=== PATIENT | female | born 1925 | race Two or more races ===

== ENCOUNTER 2016-04-05 13:59 | Emergency (ER) | payer MEDICARE, OTHER ==
[~2016-04-05] VITALS: Ht 162.6 cm; Wt 62.1 kg
[~2016-04-05 13:59] MED LIST: ACET325T53 PO; ALLA266C2 TP; Bisacodyl RC; DIVA250T4 PO; Docusate Sodium PO; ENOX30DI SQ; HYDR-3326 PO; LEVO50TA PO; MAGN400O6 PO; METO25TA20 PO; PARO10TA23 PO; Sennosides PO; Zolpidem Tartrate PO
[2016-04-05 14:52] LABS: BASOPHILS # (AUTO) 0.1 /CMM (0.0-0.2); DIFF TOTAL % 100 %; EOSINOPHILS # (AUTO) 0.1 /CMM (0.0-0.7); EOSINOPHILS % (AUTO) 1.8 % (0.0-6.0); HEMATOCRIT 37 % (33-45); HEMOGLOBIN 12.5 g/dL (11.5-14.8); LYMPHOCYTES # (AUTO) 1.9 /CMM (0.8-4.8); LYMPHOCYTES % (AUTO) 26.5 % (20.0-44.0); MEAN CORPUSCULAR HEMOGLOBIN 30 PG (26.0-33.0); MEAN CORPUSCULAR HGB CONC 34 g/dl (31.0-36.0); MEAN CORPUSCULAR VOLUME 90 fL (82-100); MONOCYTES # (AUTO) 0.7 /CMM (0.1-1.30); MONOCYTES % (AUTO) 9.2 % (2.0-12.0); NEUTROPHILS # (AUTO) 4.5 /CMM (1.8-8.9); NEUTROPHILS % (AUTO) 61.5 % (43.0-81.0); PLATELET COUNT (AUTO) 317 /CMM (150-450); RED BLOOD CELL COUNT(AUTO) 4.15 MIL/uL (4.0-5.2); WHITE BLOOD COUNT (AUTO) 7.3 K/uL (4.3-11.0)
[2016-04-05 15:00] LABS: CALCIUM, SERUM 7.6 mg/dL (8.5-10.1); POTASSIUM 4.2 mmol/L (3.5-5.1)
[2016-04-05 16:58] VITALS: BP 108/61
== END 2016-04-05 17:13 | disposition home or self-care (01) ==
LOC: ER 14:01
DX: S00.03XA Contusion of scalp, initial encounter (principal); E87.6 Hypokalemia; R79.89 Other specified abnormal findings of blood chemistry; I10 Essential (primary) hypertension; W19.XXXA Unspecified fall, initial encounter; Y93.89 Activity, other specified; Y92.89 Other specified places as the place of occurrence of the external cause; Y99.8 Other external cause status
CPT/HCPCS: 36415; 70450-TC; 71010-TC; 80048-TC; 85025-TC; A4606; Z7610

== ENCOUNTER 2016-12-07 12:14 | Inpatient (IN) | payer MEDICARE, OTHER ==
[~2016-12-07] VITALS: Ht 162.6 cm; Wt 61.2 kg
[~2016-12-07 12:14] MED LIST changes: -PARO10TA23 PO; +PARO10TA26 PO
--- NOTE | 2016-12-07 12:20 | NUR ---
BIB EMS [facility] C/O SYNCOPAL EPISODE 2 HRS GASTROENTEROLOGY TECHNICIAN. BREATHING EVEN AND UNLABORED. NO SOB. VITALS STABLE. SAFETY AND COMFORT MEASURES IN PLACE. AWAITING MD ORDERS.
--- NOTE | 2016-12-07 12:42 | NUR ---
NEW IV STARTED ON RIGHT WRIST, 20 G.
[2016-12-07 12:47] LABS: BASOPHILS # (AUTO) 0.1 /CMM (0.0-0.2); BASOPHILS % (AUTO) 1.3 % (0.0-2.0); EOSINOPHILS # (AUTO) 0.1 /CMM (0.0-0.7); EOSINOPHILS % (AUTO) 0.8 % (0.0-6.0); HEMATOCRIT 42 % (33-45); HEMOGLOBIN 14.4 g/dL (11.5-14.8); LYMPHOCYTES # (AUTO) 2.6 /CMM (0.8-4.8); LYMPHOCYTES % (AUTO) 24.4 % (20.0-44.0); MEAN CORPUSCULAR HEMOGLOBIN 32 PG (26.0-33.0); MEAN CORPUSCULAR HGB CONC 34 g/dl (31.0-36.0); MEAN CORPUSCULAR VOLUME 92 fL (82-100); MONOCYTES # (AUTO) 0.9 /CMM (0.1-1.30); MONOCYTES % (AUTO) 8.6 % (2.0-12.0); NEUTROPHILS # (AUTO) 6.9 /CMM (1.8-8.9); NEUTROPHILS % (AUTO) 64.9 % (43.0-81.0); RDW COEFFICIENT OF VARIATION 12.6 (11.5-15.0); RED BLOOD CELL COUNT(AUTO) 4.58 MIL/uL (4.0-5.2); WHITE BLOOD COUNT (AUTO) 10.6 K/uL (4.3-11.0)
[2016-12-07 12:51] LABS: PLATELET COUNT (AUTO) 160 /CMM (150-450)
--- NOTE | 2016-12-07 12:53 | NUR ---
REAL ESTATE INSTRUCTOR AT BEDSIDE.
[2016-12-07 13:00] LABS: CALCIUM, SERUM 8.6 mg/dL (8.5-10.1); CARBON DIOXIDE 24 mmol/L (21-32); CHLORIDE 100 mmol/L (98-107); GLUCOSE 102 mg/dL (74-106); POTASSIUM 4.3 mmol/L (3.5-5.1); SODIUM SERUM 131 mmol/L (136-145); UREA NITROGEN, BLOOD 16 mg/dL (7-18)
[2016-12-07 13:03] LABS: INR 1.05 (0.87-1.13); PROTHROMBIN TIME 10.9 SECS (9.5-12.7)
[2016-12-07 13:10] LABS: ALANINE AMINOTRANSFERASE 10 U/L (12-78); ALBUMIN 3.1 g/dL (3.4-5.0); ALKALINE PHOSPHATASE 137 U/L (46-116); ASPARTATE AMINOTRANSFERASE 27 U/L (15-37); BILIRUBIN,DIRECT 0.1 mg/dL (0.0-0.2); BILIRUBIN,TOTAL 0.4 mg/dL (0.2-1.0); TOTAL PROTEIN, SERUM 8.2 g/dL (6.4-8.2)
[2016-12-07 13:11] LABS: TROPONIN I 0.003 ng/mL (0.00-0.056)
[2016-12-07] MEDS ORDERED: METO25TA6 PO (13:17)
[2016-12-07] MEDS ORDERED: CALC-883 PO (13:17)
[2016-12-07] MEDS ORDERED: MULT-213 PO (13:17)
[2016-12-07] MEDS ORDERED: CRAN425C PO (13:17)
[2016-12-07] MEDS ORDERED: LEVO50TA8 PO (13:17)
[2016-12-07] MEDS ORDERED: DOCU250C75 PO (13:17)
[2016-12-07] MEDS ORDERED: IBUP-1481 PO (13:17)
[2016-12-07] MEDS ORDERED: MELA3TAB PO (13:17)
[2016-12-07] MEDS ORDERED: ACET-868 PO (13:17)
[2016-12-07] MEDS ORDERED: PARO10TA26 PO (13:17)
--- NOTE | 2016-12-07 13:34 | NUR ---
314-1 TELE NURSE ANA M
[2016-12-07] MEDS ORDERED: ENALAPRILAT DIHYD. (2.5MG/ML) 1.25 MG/ML VIAL IV ONE (13:35)
--- NOTE | 2016-12-07 13:35 | NUR ---
CALLED [facility], RATE REVIEWER WAS PAGED.
[2016-12-07] MEDS ORDERED: ENALAPRILAT INJ (1.25 MG/ML) 1.25 MG/ML VIAL IV PRN (14:00)
--- NOTE | 2016-12-07 14:40 | NUR ---
CALLED [facility], TELEPHONE INTERCEPTOR OPERATOR WAS PAGED.
--- NOTE | 2016-12-07 15:10 | NUR ---
EDUCATION ANALYST OPENING RECEIVED PATIENT FROM ER BROUGHT IN FROM [facility] WITH FAMILY AT SIDE. PATIENT M[place] SPEAKING ONLY, A/OX1 HX DEMENTIA THIS IS PATIENT BASELINE. PATIENT APPEARS STABLE. ORTHOSTATIC BP TAKEN AND TELE APPLIED PATIENT NSR 75 AT THIS TIME. NO S/S DISTRESS NO SOB, DIFFICULTY BREATHING OR PAIN AT THIS TIME. ALL NEEDS IN REACH, BED LOWERED AND LOCKED, RAILS UPX3 FOR SAFETY AND WILL ROUND Q2H OR LESS PER NEEDS. MD GOODMAN PAGED FOR ADMISSION.
--- NOTE | 2016-12-07 15:10 | NUR ---
PATIENT TRANSPORTED TO [facility] VIA ACLS PROTOCOL. RNANA M TO PROVIDE SAIMA.
[2016-12-07 15:15] VITALS: BP 159/93
[2016-12-07 15:17] VITALS: BP 144/86
[2016-12-07 15:20] VITALS: BP 111/75
[2016-12-07 16:00] VITALS: BP 159/93
--- NOTE | 2016-12-07 16:00 | NUR ---
SEWING INSPECTOR NOTES TELEPHONE ORDER DR REX MURPHY. ADMIT TO TELE DX SYNCOPE. AM CBC, BMP AND TROPONINS, MED RECON COMPLETED PER MD AND FAXED TO PHARMACY. ORDER 2G NA DIET, EKG IN AM, REPEAT ORTHO STATIC IN AM, NITRO PASTE 1/2 IN Q6H PRN FOR SBP OVER 180, SCD PUMPS
[2016-12-07] MEDS ORDERED: NITROGLYCERIN PACKET 1 GM PACKET TOP PRN (16:30)
[2016-12-07] MEDS ORDERED: ACETAMINOPHEN 325 MG TABLET PO PRN (17:30)
[2016-12-07] MEDS ORDERED: IBUPROFEN 400 MG TABLET PO PRN (17:30)
--- NOTE | 2016-12-07 18:29 | NUR ---
VICE PRESIDENT RESIDENTIAL SOLAR SALESADVERTISING TRAFFIC MANAGER PATIENT STABLE NO COMPLICATIONS NO CHANGES THROUGHOUT SHIFT. ALL NEEDS IN REACH, BED LOWERED AND LOCKED, RAILS UXP3 FOR SAFETY AND WILL ENDORSE TO RN FOR SAIMA
[2016-12-07] MEDS: IV D5/ 0.9% NACL 1,000 ML IV PRN (18:50)
[2016-12-07 20:00] VITALS: BP 153/79
--- NOTE | 2016-12-07 20:00 | NUR ---
RN NOTES RECEIVED PATIENT IN BED, ALERT AND ORIENTED X1, ORIENTED TO TIME, PLACE AND SITUATION. WITH EPISODES OF CONFUSION, HX OF DEMENTIAL. NO SOB, NO RESPIRATORY DISTRESS, TOLERATING ROOM AIR, SPO2 96%, DENIES ANY PAIN AT THIS TIME, ABLE TO VERBALIZE NEEDS IN YI. REPOSITIONED FOR COMFORT, CALL LIGHT WITHIN REACHC.
[2016-12-07] MEDS: METOPROLOL TARTRATE 25 MG TABLET PO SCH (20:43)
--- NOTE | 2016-12-07 21:32 | NUR ---
RN NOTES NOTED RIGHT WRIST PERIPHERAL LINE IS INFILTRATED, STOPPED IV INFUSION. WILL CHANGE IV SITE.
[2016-12-07] MEDS ORDERED: Medication Not On Formulary EA (Melatonin 3 MG) PO SCH (22:00)
[2016-12-08] VITALS (10 sets, daily range): BP systolic 103–185; BP diastolic 38–84
--- NOTE | 2016-12-08 00:30 | NUR ---
RN NOTES RE-INSERTED PERIPHERAL LINE TO LEFT FOREARM #22, GOOD BACKFLOW, PROCEDURE TOLERATED WELL. DISCONTINUED RIGHT HAND PERIPHERAL LINE SECONDARY TO INFILTRATION AND PAINFUL.
--- NOTE | 2016-12-08 00:57 | NUR ---
RN NOTES GIVEN RADHA COMPLAINING OF HEADACHE. MADE COMFORTABLE, WILL CONTINUE TO MONITOR
--- NOTE | 2016-12-08 06:52 | NUR ---
RN NOTES PATIENT IN BED, ALERT AND AWAKE, NO DISTRESS, NO SOB, COMPLIANT WITH MEDICATION AND DIAPER CHANGE, SLEPT FOR 5 HOURS INTERMITTENTLY, NO BEHAVIOR DISTURBANCE AFTER ONE EPISODE OF COMBATIVENESS DURING IV INSERTION. ALL DUE MEDICATIONS GIVEN, CALL LIGHT WITHIN REACH.
--- NOTE | 2016-12-08 07:30 | NUR ---
PT RECEIVED RESTING COMFORTABLY IN BED WITH EYES CLOSED. NO S/S OR C/O PAIN OR DISTRESS NOTED. SIDE RAILS UP X2, CALL LIGHT LEFT WITHIN REACH. WILL CONTINUE PLAN OF CARE.
[2016-12-08 07:41] LABS: BASOPHILS # (AUTO) 0.1 /CMM (0.0-0.2); BASOPHILS % (AUTO) 0.9 % (0.0-2.0); EOSINOPHILS # (AUTO) 0.2 /CMM (0.0-0.7); EOSINOPHILS % (AUTO) 2.5 % (0.0-6.0); HEMATOCRIT 36 % (33-45); HEMOGLOBIN 12.1 g/dL (11.5-14.8); LYMPHOCYTES # (AUTO) 2.7 /CMM (0.8-4.8); LYMPHOCYTES % (AUTO) 39.8 % (20.0-44.0); MEAN CORPUSCULAR HEMOGLOBIN 31 PG (26.0-33.0); MEAN CORPUSCULAR HGB CONC 34 g/dl (31.0-36.0); MEAN CORPUSCULAR VOLUME 94 fL (82-100); MONOCYTES # (AUTO) 0.9 /CMM (0.1-1.30); MONOCYTES % (AUTO) 13.7 % (2.0-12.0); NEUTROPHILS # (AUTO) 2.9 /CMM (1.8-8.9); NEUTROPHILS % (AUTO) 43.1 % (43.0-81.0); PLATELET COUNT (AUTO) 250 /CMM (150-450); RDW COEFFICIENT OF VARIATION 13.6 (11.5-15.0); RED BLOOD CELL COUNT(AUTO) 3.87 MIL/uL (4.0-5.2); WHITE BLOOD COUNT (AUTO) 6.7 K/uL (4.3-11.0)
[2016-12-08 07:51] LABS: CALCIUM, SERUM 7.9 mg/dL (8.5-10.1); CARBON DIOXIDE 24 mmol/L (21-32); CHLORIDE 103 mmol/L (98-107); CREATININE 0.9 mg/dL (0.6-1.3); GLUCOSE 98 mg/dL (74-106); POTASSIUM 4.2 mmol/L (3.5-5.1); SODIUM SERUM 135 mmol/L (136-145); UREA NITROGEN, BLOOD 15 mg/dL (7-18)
[2016-12-08 07:55] LABS: TROPONIN I < 0.017 ng/mL (0.00-0.056)
[2016-12-08] MEDS: LEVOTHYROXINE SODIUM 50 MCG TABLET PO SCH (08:56)
[2016-12-08] MEDS: CALCIUM CARB 250MG /VITAMIN D 1 UDTAB PO SCH (08:57)
[2016-12-08] MEDS: METOPROLOL TARTRATE 25 MG TABLET PO SCH ×2 (08:57→20:34)
[2016-12-08] MEDS: PAROXETINE HCL 10 MG TABLET PO SCH (08:57)
[2016-12-08] MEDS: DOCUSATE SODIUM 250 MG CAPSULE PO SCH ×2 (08:57→17:08)
[2016-12-08] MEDS: MULTIVIT, IRON, MIN NO. 8, FA 1 TAB PO SCH (08:59)
[2016-12-08] MEDS ORDERED: Medication Not On Formulary EA (Cranberry Extract (Cranberry) 425 MG) PO SCH (09:00)
[2016-12-08 11:01] LABS: THYROID STIMULATING HORMONE 2.052 uIU/mL (0.358-3.74)
--- NOTE | 2016-12-08 18:17 | NUR ---
CHANGE OF SHIFT REPORT PT RESTING COMFORTABLY IN BED. NO S/S OR C/O PAIN OR DISTRESS NOTED. SIDE RAILS UP X2, CALL LIGHT LEFT WITHIN REACH. PT KEPT CLEAN, DRY, AND COMFORTABLE. NO SIGNIFICANT CHANGES SINCE PREVIOUS SHIFT. WILL GIVE REPORT TO LIDA ZENDEJAS.
--- NOTE | 2016-12-08 20:00 | NUR ---
RN NOTES RECEIVED PATIENT IN BED, ALERT, ORIENTED TO SELF ONLY, HUNGARIAN SPEAKING ONLY, CALM, PLEASANT. NO SOB, DENIES ANY PAIN AT THIS TIME. LEFT FA PERIPHERAL LINE IS PATENT AND INFUSING WELL. REPOSITIONED FOR COMFORT, CALL LIGHT WITHIN REACH.
[2016-12-09] VITALS: BP_SYST 152; BP_SYST 165; BP_DIAS 63; BP_DIAS 74
[2016-12-09 04:00] VITALS: BP_SYST 160; BP_SYST 169; BP_DIAS 78; BP_DIAS 81
[2016-12-09] MEDS: IV D5/ 0.9% NACL 1,000 ML IV PRN (05:22)
--- NOTE | 2016-12-09 05:47 | NUR ---
Slept through the night. Alert but forgetful, DX dementia. Made no attempt to get OOB. Incontinent, but cooperative about being repositioned and changed. No noted dizziness or change in visiion
[2016-12-09 07:13] LABS: BASOPHILS # (AUTO) 0.1 /CMM (0.0-0.2); BASOPHILS % (AUTO) 0.8 % (0.0-2.0); EOSINOPHILS # (AUTO) 0.2 /CMM (0.0-0.7); EOSINOPHILS % (AUTO) 2.9 % (0.0-6.0); HEMATOCRIT 39 % (33-45); HEMOGLOBIN 13.3 g/dL (11.5-14.8); LYMPHOCYTES # (AUTO) 2.5 /CMM (0.8-4.8); LYMPHOCYTES % (AUTO) 29.5 % (20.0-44.0); MEAN CORPUSCULAR HEMOGLOBIN 32 PG (26.0-33.0); MEAN CORPUSCULAR HGB CONC 34 g/dl (31.0-36.0); MEAN CORPUSCULAR VOLUME 93 fL (82-100); MONOCYTES # (AUTO) 0.9 /CMM (0.1-1.30); MONOCYTES % (AUTO) 10.6 % (2.0-12.0); NEUTROPHILS # (AUTO) 4.7 /CMM (1.8-8.9); NEUTROPHILS % (AUTO) 56.2 % (43.0-81.0); PLATELET COUNT (AUTO) 241 /CMM (150-450); RDW COEFFICIENT OF VARIATION 13.4 (11.5-15.0); RED BLOOD CELL COUNT(AUTO) 4.22 MIL/uL (4.0-5.2); WHITE BLOOD COUNT (AUTO) 8.3 K/uL (4.3-11.0)
[2016-12-09 07:32] LABS: TROPONIN I < 0.017 ng/mL (0.00-0.056)
[2016-12-09 07:38] LABS: ALANINE AMINOTRANSFERASE 425 U/L (12-78); ALBUMIN 2.5 g/dL (3.4-5.0); ASPARTATE AMINOTRANSFERASE 27 U/L (15-37); CALCIUM, SERUM 8.1 mg/dL (8.5-10.1); CARBON DIOXIDE 26 mmol/L (21-32); CHLORIDE 108 mmol/L (98-107); CREATININE 0.8 mg/dL (0.6-1.3); GLUCOSE 101 mg/dL (74-106); MAGNESIUM 1.9 mg/dL (1.8-2.4); POTASSIUM 4.6 mmol/L (3.5-5.1); SODIUM SERUM 140 mmol/L (136-145); UREA NITROGEN, BLOOD 9 mg/dL (7-18)
[2016-12-09 07:56] LABS: ALKALINE PHOSPHATASE 106 U/L (46-116); BILIRUBIN,TOTAL 0.6 mg/dL (0.2-1.0); PHOSPHORUS 3.5 mg/dL (2.5-4.9); TOTAL PROTEIN, SERUM 6.9 g/dL (6.4-8.2)
[2016-12-09 08:00] VITALS: BP 166/96
--- NOTE | 2016-12-09 08:02 | NUR ---
MS/RN OPENING NOTE PATIENT RECEIVED IN BED IN STABLE CONDITION. ALERT AND ORIENTED TIMES 1. NIUEAN SPEAKING. NO SIGNS OF ACUTE DISTRESS. NO COMPLAIN OF PAIN OR DISCOMFORT. ALL NEEDS ATTENDED TO. CALL LIGHT WITHIN REACH. WILL CONTINUE TO MONITOR TO ENSURE SAFETY.
--- NOTE | 2016-12-09 08:08 | NUR ---
MS/RN SEEN BY DR RODRIGUEZ PATIENT SEEN BY DR RODRIGUEZ WITH ORDER TO CHECK ORTHOSTATIC BLOOD PRESSURE. PATIENT REFUSED ORTHOSTATIC BLOOD PRESSURE. OFFERED TIMES 3 WITH RISK AND BENEFITS EXPLAINED IN [place]. STILL CONTINUE TO REFUSE. DR RODRIGUEZ AT BEDSIDE AWARE.
[2016-12-09] MEDS: MULTIVIT, IRON, MIN NO. 8, FA 1 TAB PO SCH (08:42)
[2016-12-09] MEDS: DOCUSATE SODIUM 250 MG CAPSULE PO SCH ×2 (08:42→16:43)
[2016-12-09] MEDS: PAROXETINE HCL 10 MG TABLET PO SCH (08:42)
[2016-12-09] MEDS: LEVOTHYROXINE SODIUM 50 MCG TABLET PO SCH (08:43)
[2016-12-09] MEDS: METOPROLOL TARTRATE 25 MG TABLET PO SCH ×2 (08:43→20:22)
[2016-12-09] MEDS: CALCIUM CARB 250MG /VITAMIN D 1 UDTAB PO SCH (08:43)
[2016-12-09] MEDS ORDERED: VALSARTAN 80 MG TABLET PO SCH (09:00)
--- NOTE | 2016-12-09 11:00 | NUR ---
MS/RN SEEN BY DR GOODMAN PATIENT SEEN BY DR GOODMAN WITH NO NEW ORDERS
[2016-12-09 16:00] VITALS: BP 170/77
[2016-12-09] MEDS: DOXAZOSIN MESYLATE (1 MG) 1 MG TABLET PO SCH (16:42)
--- NOTE | 2016-12-09 18:52 | NUR ---
MS/RN CLOSING NOTE PATIENT IN BED AWAKE IN STABLE CONDITION. ALERT AND ORIENTED TIMES 1 TO 2. PORTUGUESE SPEAKING. NO SIGNS OF ACUTE DISTRESS. NO COMPLAIN OF PAIN OR DISCOMFORT. ALL NEEDS ATTENDED TO. CALL LIGHT WITHIN REACH. WILL ENDORSE TO NEXT SHIFT FOR CONTINUITY FOR CARE.
--- NOTE | 2016-12-09 19:35 | NUR ---
MS RN NOTE RECEIVED PATIENT FROM DAY SHIFT PATIENT IS ALERT AND ORIENTEDX1, CONFUSED AT TIMES, COOPERATIVE. NO S/S OF RESPIRATORY DISTRESS OR PAIN AT THIS TIME. IV ON LEFT FA IS PATENT AND INTACT, HL ONLY. SRX2 BED IN LOW POSITION, CALL LIGHT WITHIN REACH, WILL CONTINUE TO MONITOR PATIENT.
[2016-12-09 20:00] VITALS: BP 116/57
[2016-12-09] MEDS ORDERED: DOXAZOSIN MESYLATE (1 MG) 1 MG TABLET PO SCH (22:00)
--- NOTE | 2016-12-10 06:47 | NUR ---
MS RN NOTE NO ACUTE DISTRESS PRESENT THROUGHOUT THE SHIFT. WILL ENDORSE TO DAY SHIFT NURSE FOR SAIMA.
[2016-12-10 08:00] VITALS: BP 152/70
--- NOTE | 2016-12-10 08:01 | NUR ---
MS/RN OPENING NOTE PATIENT RECEIVED IN BED IN STABLE CONDITION. ALERT AND ORIENTED TIMES 2. TOGOLESE SPEAKING. NO SIGNS OF ACUTE DISTRESS. NO COMPLAIN OF PAIN OR DISCOMFORT. ALL NEEDS ATTENDED TO. CALL LIGHT WITHIN REACH. WILL CONTINUE TO MONITOR TO ENSURE SAFETY.
[2016-12-10] MEDS: MULTIVIT, IRON, MIN NO. 8, FA 1 TAB PO SCH (08:59)
[2016-12-10] MEDS: DOXAZOSIN MESYLATE (1 MG) 1 MG TABLET PO SCH (08:59)
[2016-12-10] MEDS: CALCIUM CARB 250MG /VITAMIN D 1 UDTAB PO SCH (08:59)
[2016-12-10 09:00] VITALS: BP 152/70
[2016-12-10] MEDS: METOPROLOL TARTRATE 25 MG TABLET PO SCH (09:00)
[2016-12-10] MEDS: PAROXETINE HCL 10 MG TABLET PO SCH (09:00)
[2016-12-10] MEDS: DOCUSATE SODIUM 250 MG CAPSULE PO SCH (09:00)
[2016-12-10] MEDS ORDERED: VALSARTAN 80 MG TABLET PO SCH (09:00)
[2016-12-10] MEDS: LEVOTHYROXINE SODIUM 50 MCG TABLET PO SCH (09:00)
--- NOTE | 2016-12-10 10:30 | NUR ---
MS/RN SEEN BY DR GOODMAN PATIENT SEEN BY DR GOODMAN WITH ORDERS TO DISCHARGE PATIENT TO [facility].
--- NOTE | 2016-12-10 14:00 | NUR ---
MS/DIRECTOR DERMATOLOGY PATIENT DISCHARGE TO [facility]. ALERT AND ORIENTED TIMES 1. [place] SPEAKING AND UNDERSTANDING. NO SIGNS OF ACUTE DISTRESS. NO COMPLAIN OF PAIN OR DISCOMFORT. DISCHARGE INSTRUCTIONS PROVIDED TO PATIENT IN [place] BUT UNABLE TO COMPREHEND. REPORT GIVEN TO DANIA ZENDEJAS FROM [facility]. NAME BAND AND IV SITE REMOVED. ALL NEEDS ATTENDED TO. LEFT VIA AMBULANCE ACCOMPANIED BY 2 EMT'S IN STABLE CONDITION.
== END 2016-12-10 14:05 | DRG 74 ==
LOC: ER 12:15 → TELE 14:42 → MED 12-09 09:39
PROVIDERS: ADMIT Internal Medicine Nephrology; ATTEND Internal Medicine Nephrology
DX: G90.8 Other disorders of autonomic nervous system (principal); E44.1 Mild protein-calorie malnutrition; F03.90 Unspecified dementia, unspecified severity, without behavioral disturbance, psychotic disturbance, mood disturbance, and anxiety; I11.9 Hypertensive heart disease without heart failure; E87.1 Hypo-osmolality and hyponatremia; I16.0 Hypertensive urgency; E03.9 Hypothyroidism, unspecified; Z66 Do not resuscitate; Z88.8 Allergy status to other drugs, medicaments and biological substances; Z79.899 Other long term (current) drug therapy; Z96.652 Presence of left artificial knee joint; I70.0 Atherosclerosis of aorta; Z87.81 Personal history of (healed) traumatic fracture
CPT/HCPCS: 36415; 71010-TC; 80048-TC; 80053-TC; 80076-TC; 82728-TC; 82962-TC; 83540-TC; 83735-TC; 84100-TC; 84439-TC; 84443-TC; 84484-TC; 85025-TC; 85730-TC; 87081-TC; 93307-TC; 97116-TC; 97530-TC; A4606; J3490; J7042; Z7610

== ENCOUNTER 2016-12-13 15:39 | Inpatient (IN) | payer MEDICARE, OTHER ==
[~2016-12-13] VITALS: Ht 152.4 cm; Wt 67.1 kg
[~2016-12-13 15:39] MED LIST changes: +ACET-868 PO; -ACET325T53 PO; -ALLA266C2 TP; -Bisacodyl RC; +CALC-883 PO; +CRAN425C PO; -DIVA250T4 PO; +DOCU250C75 PO; -Docusate Sodium PO; -ENOX30DI SQ; -HYDR-3326 PO; +IBUP-1481 PO; -LEVO50TA PO; +LEVO50TA8 PO; -MAGN400O6 PO; +MELA3TAB PO; -METO25TA20 PO; +METO25TA6 PO; +MULT-213 PO; -Sennosides PO; -Zolpidem Tartrate PO
--- NOTE | 2016-12-13 15:50 | NUR ---
BIB [facility] C/O SYNCOPAL EPISODE WHILE ON WHEELCHAIR. PT AWAKE, ALERT AND ORIENTED. MD AT BS FOR EVAL. IV ACCESS STARTED. SAFETY AND COMFORT MEASURES PROVIDED. WILL MONITOR.
--- NOTE | 2016-12-13 16:03 | NUR ---
PT TAKEN TO CT SCAN.
[2016-12-13 16:09] LABS: BASOPHILS # (AUTO) 0.1 /CMM (0.0-0.2); BASOPHILS % (AUTO) 0.9 % (0.0-2.0); EOSINOPHILS # (AUTO) 0.1 /CMM (0.0-0.7); HEMATOCRIT 37 % (33-45); HEMOGLOBIN 12.2 g/dL (11.5-14.8); LYMPHOCYTES # (AUTO) 2.5 /CMM (0.8-4.8); LYMPHOCYTES % (AUTO) 35.1 % (20.0-44.0); MEAN CORPUSCULAR HEMOGLOBIN 31 PG (26.0-33.0); MEAN CORPUSCULAR HGB CONC 33 g/dl (31.0-36.0); MEAN CORPUSCULAR VOLUME 94 fL (82-100); MONOCYTES # (AUTO) 0.7 /CMM (0.1-1.30); MONOCYTES % (AUTO) 9.3 % (2.0-12.0); NEUTROPHILS # (AUTO) 3.7 /CMM (1.8-8.9); NEUTROPHILS % (AUTO) 52.7 % (43.0-81.0); PLATELET COUNT (AUTO) 267 /CMM (150-450); RDW COEFFICIENT OF VARIATION 13.9 (11.5-15.0); RED BLOOD CELL COUNT(AUTO) 3.95 MIL/uL (4.0-5.2)
--- NOTE | 2016-12-13 16:30 | NUR ---
URINE SAMPLE OBTAINED, SENT.
[2016-12-13 16:32] LABS: CALCIUM, SERUM 8.4 mg/dL (8.5-10.1); CARBON DIOXIDE 26 mmol/L (21-32); CHLORIDE 103 mmol/L (98-107); CREATININE 1.1 mg/dL (0.6-1.3); GLUCOSE 85 mg/dL (74-106); POTASSIUM 4.5 mmol/L (3.5-5.1); SODIUM SERUM 136 mmol/L (136-145); UREA NITROGEN, BLOOD 18 mg/dL (7-18)
[2016-12-13 16:42] LABS: TROPONIN I < 0.017 ng/mL (0.00-0.056)
[2016-12-13 17:20] LABS: APPEARANCE,URINE SL CLOUDY (CLEAR); BILIRUBIN,URINE NEGATIVE (NEGATIVE); BLOOD, URINE TRACE-INTA Ery/uL (NEGATIVE); COLOR,URINE YELLOW (YELLOW); KETONES,URINE NEGATIVE (NEGATIVE); LEUKOCYTE ESTERASE ,URINE 3+ (NEGATIVE); NITRITE, URINE POSITIVE (NEGATIVE); PROTEIN,URINE NEGATIVE (NEGATIVE); UGLUCOSE NEGATIVE (NEGATIVE); UROBILINOGEN,URINE 0.2 EU/dL (0.2)
[2016-12-13] MEDS ORDERED: DOXA2TAB PO (17:21)
[2016-12-13] MEDS ORDERED: AMIN30LI27 PO (17:21)
[2016-12-13] MEDS ORDERED: VALS160T2 PO (17:21)
[2016-12-13 17:32] LABS: BACTERIA,URINE 4+ /HPF (None Seen); SQUAMOUS EPITHELIAL CELL,UR 0-2 /HPF (None Seen); WBC,URINE 21-50 /HPF (0-3)
[2016-12-13] MEDS ORDERED: CEFTRIAXONE 1GM BAG (ER ONLY) 50 ML IV ONE (17:42)
--- NOTE | 2016-12-13 17:52 | NUR ---
PAGED DR. JOSEPH FOR ADMISSION
[2016-12-13] MEDS ORDERED: AZITHROMYCIN 500 MG in IV D5W 250 ML IV ONE (18:00)
[2016-12-13] MEDS ORDERED: CEFTRIAXONE 1 G in IV D5W 50 ML IV ONE (18:00)
--- NOTE | 2016-12-13 18:14 | NUR ---
[address]ND [address] TO DR. JOSEPH FOR ADMISSION
--- NOTE | 2016-12-13 18:52 | NUR ---
REPORT GIVEN TO GET ZENDEJAS FOR TELE [id number].
[2016-12-13 20:00] VITALS: BP 119/62
[2016-12-14] VITALS: BP 140/64
[2016-12-14 04:00] VITALS: BP 118/61
--- NOTE | 2016-12-14 06:48 | NUR ---
RN NOTE RECEIVED PT IN NO ACUTE DISTRESS IN BED. PT IS A/O X 2 AND ABLE TO MAKE NEEDS KNOWN. PT IS ON 2L O2 VIA NC AND TOLERATING WELL @ 98%. PT IS ON TELE WITH SR ON THE MONITOR. PT DID NOT HAVE ANY SIGNIFICANT CHANGE IN CONDITION DURING SHIFT. ALL NEEDS MET, ALL ORDERS CARRIED OUT. WILL ENDORSE CARE TO AM RN FOR CONTINUITY OF CARE.
--- NOTE | 2016-12-14 07:46 | NUR ---
RN NOTES RECEIVED PT FROM MUSIC COMPOSITION TEACHER IN STABLE CONDITION, A&OX3, MINIMAL WELSH MOSTLY SOMALI SPEAKING. ON 2L NS, NO SOB OR DISTRESS NOTED. SR ON THE TELE MONITOR HR IN THE 80S. R FA 20 GAUGE IV SITE DRY AND INTACT. BED LOCKED AND IN LOWEST POSITION, CALL LIGHT WITHIN REACH, SIDE RAILS UPX3, WILL CONT TO MONITOR.
[2016-12-14 08:00] VITALS: BP 117/69
[2016-12-14] MEDS ORDERED: Medication Not On Formulary EA (Cranberry Extract (Cranberry) 425 MG) PO SCH (09:30)
[2016-12-14] MEDS ORDERED: ACETAMINOPHEN 325 MG TABLET PO PRN (09:30)
[2016-12-14] MEDS ORDERED: IBUPROFEN 400 MG TABLET PO PRN (09:30)
[2016-12-14 10:11] LABS: BASOPHILS # (AUTO) 0.1 /CMM (0.0-0.2); BASOPHILS % (AUTO) 1.5 % (0.0-2.0); EOSINOPHILS # (AUTO) 0.1 /CMM (0.0-0.7); EOSINOPHILS % (AUTO) 2.4 % (0.0-6.0); HEMATOCRIT 36 % (33-45); LYMPHOCYTES # (AUTO) 2.1 /CMM (0.8-4.8); LYMPHOCYTES % (AUTO) 36.7 % (20.0-44.0); MEAN CORPUSCULAR HEMOGLOBIN 31 PG (26.0-33.0); MEAN CORPUSCULAR HGB CONC 33 g/dl (31.0-36.0); MEAN CORPUSCULAR VOLUME 93 fL (82-100); MONOCYTES # (AUTO) 0.6 /CMM (0.1-1.30); MONOCYTES % (AUTO) 10.3 % (2.0-12.0); NEUTROPHILS # (AUTO) 2.8 /CMM (1.8-8.9); NEUTROPHILS % (AUTO) 49.1 % (43.0-81.0); PLATELET COUNT (AUTO) 263 /CMM (150-450); RDW COEFFICIENT OF VARIATION 13.2 (11.5-15.0); RED BLOOD CELL COUNT(AUTO) 3.86 MIL/uL (4.0-5.2); WHITE BLOOD COUNT (AUTO) 5.7 K/uL (4.3-11.0)
[2016-12-14] MEDS: PROSOURCE / PROSTAT (PYXIS) 30 ML UDC PO SCH ×2 (10:16→17:11)
[2016-12-14] MEDS: DOXAZOSIN MESYLATE (1 MG) 1 MG TABLET PO SCH ×2 (10:16→17:10)
[2016-12-14] MEDS: LEVOTHYROXINE SODIUM 50 MCG TABLET PO SCH (10:16)
[2016-12-14] MEDS: CALCIUM CARB 600MG /VIT D 1 EACH TABLET PO SCH (10:17)
[2016-12-14] MEDS: PAROXETINE HCL 10 MG TABLET PO SCH (10:17)
[2016-12-14] MEDS: MULTIVIT, IRON, MIN NO. 8, FA 1 TAB PO SCH (10:17)
[2016-12-14 10:20] LABS: CALCIUM, SERUM 8.2 mg/dL (8.5-10.1); CARBON DIOXIDE 27 mmol/L (21-32); CHLORIDE 107 mmol/L (98-107); CREATININE 0.8 mg/dL (0.6-1.3); GLUCOSE 102 mg/dL (74-106); POTASSIUM 3.9 mmol/L (3.5-5.1); SODIUM SERUM 140 mmol/L (136-145); UREA NITROGEN, BLOOD 13 mg/dL (7-18)
[2016-12-14 10:25] LABS: ALANINE AMINOTRANSFERASE 13 U/L (12-78); ALBUMIN 2.5 g/dL (3.4-5.0); ALKALINE PHOSPHATASE 100 U/L (46-116); ASPARTATE AMINOTRANSFERASE 19 U/L (15-37); BILIRUBIN,TOTAL 0.3 mg/dL (0.2-1.0); MAGNESIUM 2.1 mg/dL (1.8-2.4); PHOSPHORUS 3.1 mg/dL (2.5-4.9); TOTAL PROTEIN, SERUM 6.8 g/dL (6.4-8.2)
[2016-12-14] MEDS: IV NS 0.9% 1,000 ML IV PRN (11:11)
--- NOTE | 2016-12-14 11:36 | NUR ---
RN NOTES DR RODRIGUEZ ORDERED ORTHOSTATIC BLOOD PRESSURE, ATTEMPTED TO DO WITH ALUMINUM WELDER, PT IS UNABLE TO STAND. PER PT SHE NEVER WALKS AT HER PRISON, ONLY USES A WHEELCHAIR. VITALS WERE DONE LAYING DOWN AND SITTING UP IN BED.
[2016-12-14 12:00] VITALS: BP_SYST 137; BP_SYST 147; BP_DIAS 61; BP_DIAS 82
[2016-12-14 16:00] VITALS: BP_SYST 136; BP_SYST 162; BP_DIAS 66; BP_DIAS 76
[2016-12-14] MEDS: DOCUSATE SODIUM 250 MG CAPSULE PO SCH (17:10)
[2016-12-14] MEDS: CEFTRIAXONE 1 G in IV D5W 50 ML IV SCH (17:10)
[2016-12-14] MEDS: ZITHROMAX 500 MG/250 ML D5W IV SCH ×2 (18:18)
--- NOTE | 2016-12-14 18:35 | NUR ---
RN NOTES PT RESTING IN BED NO SOB OR DISTRESS NOTED. ALL NEEDS MET. SON WAS AT BEDSIDE. SR ON THE TELE MONITOR. IV SITE DRY AND INTACT. PT CLEANED TURNED AND REPOSITIONED. CALL LIGHT WITHIN REACH, SIDE RAILS UPX3, BED LOCKED WILL ENDORSE TO ONCOMING SHIFT.
--- NOTE | 2016-12-14 18:40 | NUR ---
RN NOTES PT RESTING IN BED WITH SISTER AT BEDSIDE. TOLERATING VENT SETTINGS SO SOB OR DISTRESS NOTED. NO SIGNIFICANT CHANGES THROUGHOUT MY SHIFT. ONE EPISODE OF DIARRHEA. PT CLEANED AND REPOSITIONED. RESTRAINT OFF AND ON THROUGHOUT THE SHIFT. CALL LIGHT WITHIN REACH, BED LOCKED AND IN LOWEST POSITION, WILL ENDORSE TO ONCOMING SHIFT.
[2016-12-14 20:00] VITALS: BP 106/72
[2016-12-14] MEDS: METOPROLOL TARTRATE 25 MG TABLET PO SCH (21:00)
[2016-12-14] MEDS ORDERED: Melatonin 3 MG PO PRN (22:00)
[2016-12-15] VITALS (8 sets, daily range): BP systolic 101–169; BP diastolic 50–91
--- NOTE | 2016-12-15 08:06 | NUR ---
RN INITAL NOTE RECEIVED PT IN NO ACUTE DISTRESS IN BED. PT IS A/O X 2 AND ABLE TO MAKE NEEDS KNOWN. PT IS ON 2L O2 VIA NC AND TOLERATING WELL @ 98%. PT IS ON TELE WITH SR ON THE MONITOR. PT DID NOT HAVE ANY SIGNIFICANT CHANGE IN CONDITION DURING SHIFT. ALL NEEDS MET, ALL ORDERS CARRIED OUT. WILL ENDORSE CARE TO AM RN FOR CONTINUITY OF CARE. Addendum: 12/15/16 at 0808 by JEAN RUIZ RN INITIAL RN NOTE CORRECTION RECEIVED PT IN NO ACUTE DISTRESS IN BED. PT IS A/O X 2 AND ABLE TO MAKE NEEDS KNOWN. PT IS ON 2L O2 VIA NC AND TOLERATING WELL @ 98%. PT IS ON TELE WITH SR ON THE MONITOR. PATIENT REFUSING CARE AT THIS TIME RN WILL CONTINUE TO FOLLOW THROUGHOUT THE DAY
[2016-12-15] MEDS: VALSARTAN 80 MG TABLET PO SCH (08:53)
[2016-12-15] MEDS: LEVOTHYROXINE SODIUM 50 MCG TABLET PO SCH (08:53)
[2016-12-15] MEDS: DOCUSATE SODIUM 250 MG CAPSULE PO SCH ×2 (08:53→17:00)
[2016-12-15] MEDS: PAROXETINE HCL 10 MG TABLET PO SCH (08:53)
[2016-12-15] MEDS: DOXAZOSIN MESYLATE (1 MG) 1 MG TABLET PO SCH ×2 (08:54→17:00)
[2016-12-15] MEDS: MULTIVIT, IRON, MIN NO. 8, FA 1 TAB PO SCH (08:54)
[2016-12-15] MEDS: PROSOURCE / PROSTAT (PYXIS) 30 ML UDC PO SCH ×2 (08:54→17:00)
[2016-12-15] MEDS: METOPROLOL TARTRATE 25 MG TABLET PO SCH ×2 (08:54→21:29)
[2016-12-15] MEDS: CALCIUM CARB 600MG /VIT D 1 EACH TABLET PO SCH (08:54)
--- NOTE | 2016-12-15 10:21 | NUR ---
RN Note RN SPOKE WITH PATIENT SON AND UPDATED HIM ON PATIENTS PLAN OF CARE PATIENT HAS BEEN REFUSING SOME CARE WILL NOT ALLOW RN TO START IV FLUIDS STATES SHE IS TIRED OF BEING STUCK AND GIVING BLOOD , PATIENT REFUSED LAB DRAW SURVEY INTERVIEWER STATES SHE WILL BE CANCELLING TODAY LABS SINCE PATIENT HAS REFUSED X2 . CHARGE NURSE NOTIFIED AND ACKNOWLEDGED RN WILL CONTINUE TO FOLLOW
--- NOTE | 2016-12-15 10:58 | NUR ---
PATIENT UNABLE TO TOLERATE STANDING ,UNABLE TO DO V/S ON STANDING POSITION DR. ORDRIGUEZ NOTIFIED.
[2016-12-15] MEDS: CEFTRIAXONE 1 G in IV D5W 50 ML IV SCH (17:00)
[2016-12-15] MEDS: ZITHROMAX 500 MG/250 ML D5W IV SCH ×2 (17:58)
--- NOTE | 2016-12-15 18:39 | NUR ---
RN NOTE PATIENT STABLE THROUGHOUT THE DAY HOWEVER PATIENT HAS REFUSED MULTIPLE SERVICES SUCH MEDICATION ADMINISTRATION , LAB DRAWS, AND REPOSITIONING AT TIMES, PATIENTS SON UPDATED ON PLAN OF CARE , WELL MOTHER REFUSING CARE. PATIENT ALLOWED US TO PROVIDE BED BATH AND ALSO HELP ASSIST IN FEEDING THROUGHOUT THE DAY , PATIENT IS COMFORTABLE RESTING RN WILL ENDORSE CONTINUED CARE TO PM RN
--- NOTE | 2016-12-15 19:25 | NUR ---
RN note patient has pulled of left forearm iv and iv antibiotics held and endorse to pm rn to continue and notify md and charge nurse ,
--- NOTE | 2016-12-15 19:45 | NUR ---
RN OPENING NOTES: RECEIVED PT ON BED AWAKE ALOX1 WITH EPISODES OF CONFUSION, PATIENT THINKS SHE IS AT HOME. NOT IN APPARENT DISTRESS.ON O2 VIA NC AT 2LPM, TOLERATED WELL. SINUS RHYTHM ON THE MONITOR HR AT 74 BPM. IV ACCESS ON R HAND G22 INTACT. DENIES PRESENCE OF PAIN AT THIS TIME. WITH DIAPER ON, GOOD SKIN CARE TO BE RENDERED. SAFETY AND FALL PREVENTIVE MEASURES ENSURED. BED EXIT ALARM ON. CONTINUOUSLY MONITORED.
--- NOTE | 2016-12-15 21:05 | NUR ---
RN NOTES: NOTED PATIENT TO HAVE PULLED OUT HER IV ACCESS, PER PATIENT "IT WAS HURTING." EXPLAINED WITH HELP OF ANTHONY TO TRANSLATE IN FAROESE THE NECESSITY OF IV ACCESS AND IV FLUIDS, AND THE NEED TO HAVE ANOTHER ACCESS. PATIENT VERBALIZED AGREEMENT. NEW ACCESS AT R HAND G22. IVF RESTARTED. GAVE INSTRUCTIONS NOT TO PULL ANY LINES OUT AND INSTRUCTED HOW TO CALL FOR HELP IF NEEDED. SAFETY MEASURES ENSURED. CONTINUOUSLY MONITORED.
[2016-12-15] MEDS: IV NS 0.9% 1,000 ML IV PRN (21:30)
[2016-12-16] VITALS: BP 161/80
[2016-12-16 00:40] VITALS: BP 161/80
[2016-12-16 04:00] VITALS: BP 148/92
[2016-12-16 04:27] VITALS: BP 148/92
[2016-12-16] MEDS: IV NS 0.9% 1,000 ML IV PRN (05:44)
--- NOTE | 2016-12-16 06:54 | NUR ---
RN CLOSING NOTES: PATIENT REMAINED IN BED NOT IN APPARENT DISTRESS. SKIN CARE RENDERED. SAFETY MEASURES ENSURED. REMAINED IV ACCES INTACT. REMAINED SINUS RHYTHM ON MONITOR. CONTINUOUSLY MONITORED. TO ENDORSE TO AM SHIFT RN.
--- NOTE | 2016-12-16 07:15 | NUR ---
RN NOTES REPORT RECEIVED AT THE BEDSIDE. PATIENT RESTING COMFORTABLY IN BED. NO SOB OR DISTRESS NOTED AT THIS TIME. PATIENT DOES NOT APPEAR TO BE IN PAIN, NO FACIAL GRIMACE NOTED. HEART RATE SR IN THE 70S. BED IN A LOW POSITION, CALL LIGHT WITHIN PATIENT REACH. WILL CONTINUE TO MONITOR.
[2016-12-16 08:00] VITALS: BP 180/87
[2016-12-16] MEDS: DOXAZOSIN MESYLATE (1 MG) 1 MG TABLET PO SCH (08:17)
[2016-12-16] MEDS: DOCUSATE SODIUM 250 MG CAPSULE PO SCH (08:17)
[2016-12-16] MEDS: VALSARTAN 80 MG TABLET PO SCH (08:18)
[2016-12-16] MEDS: CALCIUM CARB 600MG /VIT D 1 EACH TABLET PO SCH (08:18)
[2016-12-16] MEDS: METOPROLOL TARTRATE 25 MG TABLET PO SCH (08:18)
[2016-12-16] MEDS: MULTIVIT, IRON, MIN NO. 8, FA 1 TAB PO SCH (08:18)
[2016-12-16] MEDS: LEVOTHYROXINE SODIUM 50 MCG TABLET PO SCH (08:18)
[2016-12-16] MEDS: PAROXETINE HCL 10 MG TABLET PO SCH (08:18)
[2016-12-16] MEDS: PROSOURCE / PROSTAT (PYXIS) 30 ML UDC PO SCH (08:19)
--- NOTE | 2016-12-16 10:41 | NUR ---
RN NOTES ATTEMPTED TO CALL PATIENT'S DAUGHTERMEL AND INFORM HER THAT HER MOTHER IS TO BE TRANSFERRED BACK TO [facility]. WAS UNABLE TO REACH DAUGHTER BY PHONE. LEFT A MESSAGE THAT HER MOTHER WILL BE TRANSFERRED AROUND 1200 TODAY. Addendum: 12/16/16 at 1043 by ENRIKE TIERNEY RN CALLED [facility] AND GAVE REPORT TO SABINA.
[2016-12-16 12:00] VITALS: BP 110/56
--- NOTE | 2016-12-16 13:20 | NUR ---
DISCHARGE NOTES DISCHARGE INSTRUCTIONS GIVEN TO THE PATIENT AND PATIENT'S GRANDSON AND ABLE TO UNDERSTAND. ALL PAPERWORK SIGNED AND BELONGINGS ACCOUNTED FOR. PICTURES ON DISCHARGE NOT TAKEN PATIENT REFUSES. ONLY NOTABLE SKIN ISSUES ARE LEFT THIGH SCRATCHES FROM PATIENT SCRATCHING AT ITCHY SKIN AND BILATERAL ARM DISCOLORATIONS. IV WILL REMAIN INTACT PATIENT IS DISCHARGED ON IV ABX FOR THREE MORE DAYS. IV WAS INSERTED THIS MORNING AROUN 0500; DRESSING CLEAN AND INTACT. PATIENT LEFT IN STABLE CONDITION, NO SOB OR DISTRESS, DENIES PAIN. DISCHARGED TO [facility], VIA AMBULANCE. REPORT CALLED TO AASHISH MUHAMMAD.
== END 2016-12-16 13:14 | DRG 73 ==
LOC: ER 15:40 → TELE1 19:00 → MEDSG1 12-16 08:23
PROVIDERS: ADMIT Internal Medicine; ATTEND Internal Medicine
DX: G90.8 Other disorders of autonomic nervous system (principal); J15.9 Unspecified bacterial pneumonia; N39.0 Urinary tract infection, site not specified; F03.90 Unspecified dementia, unspecified severity, without behavioral disturbance, psychotic disturbance, mood disturbance, and anxiety; E44.1 Mild protein-calorie malnutrition; D64.9 Anemia, unspecified; W01.0XXA Fall on same level from slipping, tripping and stumbling without subsequent striking against object, initial encounter; E03.9 Hypothyroidism, unspecified; M81.0 Age-related osteoporosis without current pathological fracture; R79.89 Other specified abnormal findings of blood chemistry; B95.1 Streptococcus, group B, as the cause of diseases classified elsewhere; I16.0 Hypertensive urgency; Z96.642 Presence of left artificial hip joint; Z96.652 Presence of left artificial knee joint; Y92.129 Unspecified place in nursing home as the place of occurrence of the external cause
CPT/HCPCS: 36415; 70450-TC; 71010-TC; 72170-TC; 80048-TC; 80053-TC; 81000-TC; 83735-TC; 84100-TC; 84484-TC; 85025-TC; 87086-TC; A4606; J0456; J0696; J7030; J7060; Z7610

== ENCOUNTER 2017-03-19 09:04 | Inpatient (IN) | payer MEDICARE, OTHER ==
[~2017-03-19] VITALS: Ht 157.5 cm; Wt 68.0 kg
[~2017-03-19 09:04] MED LIST changes: +AMIN30LI27 PO; -CRAN425C PO; +CRAN425C6 PO; +DOCU250C14 PO; -DOCU250C75 PO; +DOXA2TAB PO; -IBUP-1481 PO; +IBUP-1953 PO; -PARO10TA26 PO; +PARO10TA86 PO; +VALS160T2 PO
[2017-03-19 09:37] LABS: BASOPHILS # (AUTO) 0.1 /CMM (0.0-0.2); BASOPHILS % (AUTO) 0.8 % (0.0-2.0); EOSINOPHILS # (AUTO) 0.2 /CMM (0.0-0.7); EOSINOPHILS % (AUTO) 2.8 % (0.0-6.0); HEMATOCRIT 34 % (33-45); LYMPHOCYTES # (AUTO) 1.8 /CMM (0.8-4.8); LYMPHOCYTES % (AUTO) 24.5 % (20.0-44.0); MEAN CORPUSCULAR HEMOGLOBIN 32 PG (26.0-33.0); MEAN CORPUSCULAR HGB CONC 35 g/dl (31.0-36.0); MEAN CORPUSCULAR VOLUME 91 fL (82-100); MONOCYTES # (AUTO) 0.8 /CMM (0.1-1.30); MONOCYTES % (AUTO) 10.3 % (2.0-12.0); NEUTROPHILS # (AUTO) 4.5 /CMM (1.8-8.9); NEUTROPHILS % (AUTO) 61.6 % (43.0-81.0); PLATELET COUNT (AUTO) 210 /CMM (150-450); RDW COEFFICIENT OF VARIATION 12.2 (11.5-15.0); RED BLOOD CELL COUNT(AUTO) 3.72 MIL/uL (4.0-5.2); WHITE BLOOD COUNT (AUTO) 7.4 K/uL (4.3-11.0)
[2017-03-19 09:49] LABS: CALCIUM, SERUM 8.7 mg/dL (8.5-10.1); CARBON DIOXIDE 25 mmol/L (21-32); CHLORIDE 105 mmol/L (98-107); CREATININE 0.9 mg/dL (0.6-1.3); GLUCOSE 116 mg/dL (74-106); POTASSIUM 4.5 mmol/L (3.5-5.1); SODIUM SERUM 137 mmol/L (136-145); UREA NITROGEN, BLOOD 18 mg/dL (7-18)
[2017-03-19 09:51] LABS: INR 1.06 (0.87-1.13)
[2017-03-19 09:55] LABS: ALANINE AMINOTRANSFERASE 12 U/L (12-78); ALBUMIN 2.8 g/dL (3.4-5.0); ALKALINE PHOSPHATASE 105 U/L (46-116); ASPARTATE AMINOTRANSFERASE 24 U/L (15-37); BILIRUBIN,DIRECT 0.1 mg/dL (0.0-0.2); BILIRUBIN,TOTAL 0.6 mg/dL (0.2-1.0); TOTAL PROTEIN, SERUM 7.3 g/dL (6.4-8.2)
[2017-03-19 09:58] LABS: TROPONIN I < 0.017 ng/mL (0.00-0.056)
[2017-03-19 10:19] LABS: APPEARANCE,URINE Clear (CLEAR); BILIRUBIN,URINE Negative (NEGATIVE); BLOOD, URINE Trace-intact Ery/uL (NEGATIVE); COLOR,URINE Yellow (YELLOW); KETONES,URINE Negative (NEGATIVE); LEUKOCYTE ESTERASE ,URINE Large (NEGATIVE); NITRITE, URINE Positive (NEGATIVE); PROTEIN,URINE Negative (NEGATIVE); UGLUCOSE Negative (NEGATIVE); UROBILINOGEN,URINE 0.2 EU/dL (0.2)
[2017-03-19 10:43] LABS: BACTERIA,URINE Rare /HPF (None Seen); RBC,URINE 0-2 /HPF (0-2); SQUAMOUS EPITHELIAL CELL,UR Few /HPF (None Seen); WBC,URINE 21-50 /HPF (0-3)
[2017-03-19] MEDS ORDERED: CEFTRIAXONE 1GM BAG (ER ONLY) 50 ML IV ONE (11:23)
[2017-03-19] MEDS ORDERED: CEFTRIAXONE 1GM BAG (ER ONLY) 1 GM/50 ML PIGGYBACK IV ONE (11:30)
[2017-03-19 12:30] VITALS: BP 156/84
[2017-03-19] MEDS: PIPERACILLIN /TAZOBACTAM 3.375 G in IV D5W 50 ML IV SCH ×2 (14:53→20:07)
[2017-03-19 16:00] VITALS: BP 190/76
[2017-03-19 20:00] VITALS: BP 152/88
[2017-03-20] VITALS: BP 140/77
[2017-03-20] MEDS: PIPERACILLIN /TAZOBACTAM 3.375 G in IV D5W 50 ML IV SCH (01:54)
[2017-03-20 04:00] VITALS: BP_SYST 151; BP_SYST 164; BP_DIAS 75
[2017-03-20 06:35] LABS: BASOPHILS # (AUTO) 0.1 /CMM (0.0-0.2); BASOPHILS % (AUTO) 1.2 % (0.0-2.0); EOSINOPHILS # (AUTO) 0.2 /CMM (0.0-0.7); EOSINOPHILS % (AUTO) 3.1 % (0.0-6.0); HEMATOCRIT 34 % (33-45); HEMOGLOBIN 12.2 g/dL (11.5-14.8); LYMPHOCYTES # (AUTO) 1.9 /CMM (0.8-4.8); LYMPHOCYTES % (AUTO) 29.2 % (20.0-44.0); MEAN CORPUSCULAR HEMOGLOBIN 33 PG (26.0-33.0); MEAN CORPUSCULAR HGB CONC 36 g/dl (31.0-36.0); MEAN CORPUSCULAR VOLUME 92 fL (82-100); MONOCYTES % (AUTO) 14.4 % (2.0-12.0); NEUTROPHILS # (AUTO) 3.4 /CMM (1.8-8.9); NEUTROPHILS % (AUTO) 52.1 % (43.0-81.0); PLATELET COUNT (AUTO) 238 /CMM (150-450); RDW COEFFICIENT OF VARIATION 12.2 (11.5-15.0); WHITE BLOOD COUNT (AUTO) 6.6 K/uL (4.3-11.0)
[2017-03-20 06:55] LABS: CALCIUM, SERUM 8.1 mg/dL (8.5-10.1); CARBON DIOXIDE 25 mmol/L (21-32); CHLORIDE 101 mmol/L (98-107); GLUCOSE 94 mg/dL (74-106); MAGNESIUM 1.8 mg/dL (1.8-2.4); POTASSIUM 3.8 mmol/L (3.5-5.1); SODIUM SERUM 135 mmol/L (136-145); UREA NITROGEN, BLOOD 14 mg/dL (7-18)
[2017-03-20 08:00] VITALS: BP 145/52
[2017-03-20] MEDS: PIPERACILLIN /TAZOBACTAM 2.25 G in IV D5W 50 ML IV SCH ×4 (08:00→23:16)
[2017-03-20] MEDS ORDERED: MULTIVITAMIN/LUTEIN/MINERALS 1 TAB PO SCH (09:00)
[2017-03-20] MEDS: VALSARTAN 80 MG TABLET PO SCH (10:35)
[2017-03-20] MEDS: LEVOTHYROXINE SODIUM 50 MCG TABLET PO SCH (10:35)
[2017-03-20] MEDS: METOPROLOL TARTRATE 25 MG TABLET PO SCH ×2 (10:37→21:31)
[2017-03-20] MEDS: PROSOURCE / PROSTAT (PYXIS) 30 ML UDC PO SCH ×2 (10:37→18:20)
[2017-03-20] MEDS: DOCUSATE SODIUM 250 MG CAPSULE PO SCH (10:38)
[2017-03-20] MEDS: MULTIVITAMINS,THERAGRAN 1 UDTAB TABLET PO SCH (10:38)
[2017-03-20] MEDS: PAROXETINE HCL 10 MG TABLET PO SCH (10:38)
[2017-03-20] MEDS: DOXAZOSIN MESYLATE (1 MG) 1 MG TABLET PO SCH ×2 (10:39→18:20)
[2017-03-20] MEDS: CALCIUM CARB 250MG /VITAMIN D 1 UDTAB PO SCH (10:39)
[2017-03-20 16:00] VITALS: BP 139/89
[2017-03-20] MEDS: MUPIROCIN OINT 2% 22 GM TUBE SCH ×2 (19:42→21:00)
[2017-03-20 20:00] VITALS: BP 135/72
[2017-03-21] MEDS: PIPERACILLIN /TAZOBACTAM 2.25 G in IV D5W 50 ML IV SCH ×4 (05:14→23:19)
[2017-03-21 08:00] VITALS: BP 125/59
[2017-03-21] MEDS: VALSARTAN 80 MG TABLET PO SCH (09:00)
[2017-03-21] MEDS: MULTIVITAMINS,THERAGRAN 1 UDTAB TABLET PO SCH (09:00)
[2017-03-21] MEDS: METOPROLOL TARTRATE 25 MG TABLET PO SCH ×2 (09:00→21:04)
[2017-03-21] MEDS: LEVOTHYROXINE SODIUM 50 MCG TABLET PO SCH (09:21)
[2017-03-21] MEDS: DOXAZOSIN MESYLATE (1 MG) 1 MG TABLET PO SCH ×2 (09:22→18:34)
[2017-03-21] MEDS: CALCIUM CARB 250MG /VITAMIN D 1 UDTAB PO SCH (09:22)
[2017-03-21] MEDS: DOCUSATE SODIUM 250 MG CAPSULE PO SCH (09:22)
[2017-03-21] MEDS: PROSOURCE / PROSTAT (PYXIS) 30 ML UDC PO SCH ×2 (09:25→18:32)
[2017-03-21] MEDS: PAROXETINE HCL 10 MG TABLET PO SCH (09:25)
[2017-03-21] MEDS: MUPIROCIN OINT 2% 22 GM TUBE SCH ×2 (09:34→21:02)
[2017-03-21 16:00] VITALS: BP 120/61
[2017-03-21 19:30] VITALS: BP 116/43
[2017-03-21 22:22] VITALS: BP 116/43
[2017-03-22] MEDS: PIPERACILLIN /TAZOBACTAM 2.25 G in IV D5W 50 ML IV SCH ×4 (05:40→23:45)
[2017-03-22 08:00] VITALS: BP 110/69
[2017-03-22] MEDS: DOCUSATE SODIUM 250 MG CAPSULE PO SCH (08:49)
[2017-03-22] MEDS: PAROXETINE HCL 10 MG TABLET PO SCH (08:49)
[2017-03-22] MEDS: CALCIUM CARB 250MG /VITAMIN D 1 UDTAB PO SCH (08:50)
[2017-03-22] MEDS: DOXAZOSIN MESYLATE (1 MG) 1 MG TABLET PO SCH ×2 (08:50→17:00)
[2017-03-22] MEDS: METOPROLOL TARTRATE 25 MG TABLET PO SCH ×2 (08:51→21:20)
[2017-03-22] MEDS: VALSARTAN 80 MG TABLET PO SCH (08:51)
[2017-03-22] MEDS: PROSOURCE / PROSTAT (PYXIS) 30 ML UDC PO SCH ×2 (08:51→17:41)
[2017-03-22] MEDS: MULTIVITAMINS,THERAGRAN 1 UDTAB TABLET PO SCH (08:51)
[2017-03-22] MEDS: MUPIROCIN OINT 2% 22 GM TUBE SCH ×2 (08:52→21:20)
[2017-03-22] MEDS: LEVOTHYROXINE SODIUM 50 MCG TABLET PO SCH (08:56)
[2017-03-22] MEDS: ACETAMINOPHEN 325 MG TABLET PO PRN ×2 (08:56→17:41)
[2017-03-22 16:00] VITALS: BP 114/71
[2017-03-22 20:00] VITALS: BP 139/68
[2017-03-23 08:00] VITALS: BP 160/89
[2017-03-23] MEDS: MULTIVITAMINS,THERAGRAN 1 UDTAB TABLET PO SCH (10:57)
[2017-03-23] MEDS: DOCUSATE SODIUM 250 MG CAPSULE PO SCH (10:57)
[2017-03-23] MEDS: PAROXETINE HCL 10 MG TABLET PO SCH (10:57)
[2017-03-23] MEDS: CALCIUM CARB 250MG /VITAMIN D 1 UDTAB PO SCH (10:59)
[2017-03-23] MEDS: VALSARTAN 80 MG TABLET PO SCH (10:59)
[2017-03-23] MEDS: LEVOTHYROXINE SODIUM 50 MCG TABLET PO SCH (11:00)
[2017-03-23] MEDS: DOXAZOSIN MESYLATE (1 MG) 1 MG TABLET PO SCH ×2 (11:00→17:45)
[2017-03-23] MEDS ORDERED: hydrALAZINE HCL 25 MG TABLET PO PRN (13:30)
[2017-03-23] MEDS: PROSOURCE / PROSTAT (PYXIS) 30 ML UDC PO SCH ×2 (14:20→17:47)
[2017-03-23] MEDS: MUPIROCIN OINT 2% 22 GM TUBE SCH ×2 (14:21→21:00)
[2017-03-23 16:00] VITALS: BP 135/47
[2017-03-23 20:00] VITALS: BP 129/56
[2017-03-23 21:00] VITALS: BP 86/45
[2017-03-23] MEDS ORDERED: NITROFURANTOIN/NITROFURAN MAC 100 MG CAPSULE PO SCH (21:00)
[2017-03-23] MEDS ORDERED: METOPROLOL TARTRATE 25 MG TABLET PO SCH (21:00)
== END 2017-03-23 23:58 | DRG 690 ==
LOC: ER 09:06 → TELE 11:02 → MED 03-20 08:46
PROVIDERS: ADMIT Internal Medicine; ATTEND Internal Medicine
DX: N39.0 Urinary tract infection, site not specified (principal); G45.9 Transient cerebral ischemic attack, unspecified; B96.1 Klebsiella pneumoniae [K. pneumoniae] as the cause of diseases classified elsewhere; F03.90 Unspecified dementia, unspecified severity, without behavioral disturbance, psychotic disturbance, mood disturbance, and anxiety; E03.9 Hypothyroidism, unspecified; R26.9 Unspecified abnormalities of gait and mobility; I10 Essential (primary) hypertension; F29 Unspecified psychosis not due to a substance or known physiological condition; Z86.711 Personal history of pulmonary embolism; M81.0 Age-related osteoporosis without current pathological fracture; Z91.81 History of falling
CPT/HCPCS: 36415; 70450-TC; 71010-TC; 80048-TC; 80076-TC; 81000-TC; 82962-TC; 83605-TC; 83735-TC; 84100-TC; 84484-TC; 85025-TC; 85730-TC; 87040-TC; 87081-TC; 87086-TC; 87186-TC; 92521; A4606; J0696; J2543; J7050; J7060; Z7610